=== PATIENT | female | born 1980 | race Two or more races ===

== ENCOUNTER 2019-03-15 19:40 | Emergency (ER) | payer SELFPAY ==
--- NOTE | 2019-03-15 22:33 | ER Document Report ---
ED Medical Screen (RME) - General Chief Complaint: Urinary Problem Stated Complaint: URINATING PAIN Time Seen by Provider: 03/15/19 22:27 Mode of Arrival: Ambulatory Information source: Patient Notes: Patient presents complaining of dysuria symptoms for the past 5 days. Patient denies any fever or flank pain. I have greeted and performed a rapid initial assessment of this patient. A comprehensive ED assessment and evaluation of the patient, analysis of test results and completion of the medical decision making process will be conducted by additional ED providers. TRAVEL OUTSIDE OF THE [place] IN LAST 30 DAYS: No Physical Exam - Vital signs Vitals: Temp Pulse Resp BP Pulse Ox 98.7 F 77 18 107/60 97 03/15/19 19:51 03/15/19 19:51 03/15/19 19:51 03/15/19 19:51 03/15/19 19:51 - General General appearance: Appears well, Alert In distress: None Course - Vital Signs Vital signs: Temp Pulse Resp BP Pulse Ox 98.7 F 77 18 107/60 97 03/15/19 19:51 03/15/19 19:51 03/15/19 19:51 03/15/19 19:51 03/15/19 19:51
[2019-03-16 00:05] LABS: APPEARANCE,URINE SLIGHTLY-CLOUDY; BILIRUBIN,URINE NEGATIVE (NEGATIVE); COLOR,URINE YELLOW; GLUCOSE, URINE NEGATIVE (NEGATIVE); KETONES,URINE NEGATIVE (NEGATIVE); LEUKOCYTE ESTERASE,URINE MODERATE (NEGATIVE); NITRITE,URINE POSITIVE (NEGATIVE); PROTEIN,URINE 30 mg/dL (NEGATIVE); URINE SPECIFIC GRAVITY 1.018; UROBILINOGEN,URINE NEGATIVE mg/dL (<2.0)
[2019-03-16] MEDS ORDERED: CEPHALEXIN 500 MG CAPSULE PO ONE (00:57)
[2019-03-16] MEDS ORDERED: PHENAZOPYRIDINE HCL 200 MG TABLET PO ONE (00:57)
--- NOTE | 2019-03-16 01:00 | ER Document Report ---
HPI - HPI Patient complains to provider of: dysuria Time Seen by Provider: 03/15/19 22:27 Onset: Other - 5 days Onset/Duration: Persistent Quality of pain: Burning Pain Level: 3 Context: Patient presents complaining of dysuria for the past 5 days. Patient denies any flank pain or fever. Patient denies any concern about . Associated Symptoms: Other - Dysuria. denies: Fever Exacerbated by: Denies Relieved by: Denies Similar symptoms previously: Yes Recently seen / treated by doctor: No - ROS ROS below otherwise negative: Yes Systems Reviewed and Negative: Yes All other systems reviewed and negative - CONSTITUTIONAL Constitutional: DENIES: Fever, Chills - RESPIRATORY Respiratory: DENIES: Coughing - GASTROINTESTINAL Gastrointestinal: DENIES: Abdominal Pain, Nausea, Patient vomiting - URINARY Urinary: REPORTS: Dysuria - REPRODUCTIVE Reproductive: DENIES: : - MUSCULOSKELETAL Musculoskeletal: DENIES: Back Pain - DERM Skin Color: Normal Skin Problems: None Past Medical History - General Information source: Patient - Social History Smoking Status: Current Some Day Smoker Frequency of alcohol use: None Drug Abuse: None Occupation: None Lives with: Family Family History: Reviewed & Not Pertinent - Medical History Medical History: Negative Surgical Hx: Negative Vertical Provider Document - CONSTITUTIONAL Agree With Documented VS: Yes Exam Limitations: No Limitations General Appearance: WD/WN, No Apparent Distress - INFECTION CONTROL TRAVEL OUTSIDE OF THE [place] IN LAST 30 DAYS: No - HEENT HEENT: Atraumatic, Normocephalic - NECK Neck: Normal Inspection - RESPIRATORY Respiratory: No Respiratory Distress - GI/ABDOMEN Gastrointestinal: Abdomen Soft, Abdomen Non-Tender - BACK Back: Normal Inspection. negative: CVA Tenderness-Right, CVA Tenderness-Left - MUSCULOSKELETAL/EXTREMETIES Musculoskeletal/Extremeties: MAEW - NEURO Level of Consciousness: Awake, Alert, Appropriate Motor/Sensory: No Motor Deficit - DERM Integumentary: Warm, Dry, No Rash Course - Vital Signs Vital signs: Temp Pulse Resp BP Pulse Ox 98.7 F 77 18 107/60 97 03/15/19 19:51 03/15/19 19:51 03/15/19 19:51 03/15/19 19:51 03/15/19 19:51 - Laboratory Laboratory results interpreted by me: 03/15/19 23:34 Urine Protein 30 H Urine Blood SMALL H Urine Nitrite POSITIVE H Ur Leukocyte Esterase MODERATE H 03/16/19 00:58 Labs- Entire Visit 03/15/19 23:34 Urine Color YELLOW Urine Appearance SLIGHTLY-CLOUDY Urine pH 6.0 Ur Specific [place] 1.018 Urine Protein 30 H Urine Glucose (UA) NEGATIVE Urine Ketones NEGATIVE Urine Blood SMALL H Urine Nitrite POSITIVE H Urine Bilirubin NEGATIVE Urine Urobilinogen NEGATIVE Ur Leukocyte Esterase MODERATE H Urine WBC (Auto) 156 Urine RBC (Auto) 9 Squamous Epi Cells Auto <1 Urine Mucus (Auto) OCC Urine Ascorbic Acid NEGATIVE Urine HCG, Qual NEGATIVE Discharge - Discharge Clinical Impression: UTI (urinary tract infection) Qualifiers: Urinary tract infection type: site unspecified Hematuria presence: with hematuria Qualified Code(s): N39.0 - Urinary tract infection, site not specified Condition: Stable Disposition: HOME, SELF-CARE Instructions: Cephalexin ([facility]), Urinary Anesthetic Agent ([facility]), Urinary Tract Infection ([facility]) Additional Instructions: Return immediately for any new or worsening symptoms Followup with your primary care provider, call tomorrow to make a followup appointment Prescriptions: Cephalexin Monohydrate [Keflex 500 mg Capsule] 500 mg PO Q6H 5 Days capsule Phenazopyridine HCl [Pyridium 200 mg Tablet] 200 mg PO TID #15 tablet Referrals: [facility] [Provider Group] - Follow up as needed Print Language: Luxembourgish
[2019-03-16] MEDS ORDERED: PHENAZOPYRIDINE HCL 100 MG TABLET PO ONE (01:42)
[2019-03-16] MEDS ORDERED: PHENAZOPYRIDINE HCL 200 MG TABLET ONE (01:50)
[2019-03-16 02:11] VITALS: BP 108/70
== END 2019-03-16 02:09 | disposition home or self-care (01) ==
LOC: ER 19:40
DX: N39.0 Urinary tract infection, site not specified (principal); F17.200 Nicotine dependence, unspecified, uncomplicated
CPT/HCPCS: 87086; 81025; 87088; 81001; 87186; J3490; 99283

== ENCOUNTER 2019-09-16 12:10 | Emergency (ER) | payer SELFPAY ==
--- NOTE | 2019-09-16 13:40 | ER Document Report ---
ED Medical Screen (RME) - General Chief Complaint: Back Pain Stated Complaint: BACK PAIN Time Seen by Provider: 09/16/19 13:32 Mode of Arrival: Ambulatory Information source: Patient Notes: Patient is a Georgian-speaking 38-year-old female presenting to the emergency department with multiple complaints. Patient reports low back pain, lower abdominal pain, nausea and fever. Patient reports that she had some type of gynecological cancer back in 2018 with subsequent radiation and chemotherapy in 2019. Patient reports the symptoms started a few days ago. She denies any dysuria or urinary problems. Patient was interviewed via an medical assistant per diem. Tenderness to palpation to the low abdomen. I have greeted and performed a rapid initial assessment of this patient. A comprehensive ED assessment and evaluation of the patient, analysis of test results and completion of the medical decision making process will be conducted by additional ED providers. I have specifically instructed the patient or family members with the patient to immediately return to any nursing staff should anything change in the patient's condition or with their chief complaint. TRAVEL OUTSIDE OF THE [place] IN LAST 30 DAYS: No - Related Data Allergies/Adverse Reactions: No Known Allergies Allergy (Verified 09/16/19 13:32) Past Medical History - Social History Frequency of alcohol use: None Drug Abuse: None Renal/ Medical History: Denies: Hx Peritoneal Dialysis Physical Exam - Vital signs Vitals: Temp Pulse Resp BP Pulse Ox 98.5 F 79 16 101/59 L 97 09/16/19 12:38 09/16/19 12:38 09/16/19 12:38 09/16/19 12:38 09/16/19 12:38 Course - Vital Signs Vital signs: Temp Pulse Resp BP Pulse Ox 98.5 F 79 16 101/59 L 97 09/16/19 12:38 09/16/19 12:38 09/16/19 12:38 09/16/19 12:38 09/16/19 12:38
[2019-09-16 14:22] LABS: ABSOLUTE LYMPHOCYTES (AUTO) 1.2 10^3/uL (0.5-4.7); ABSOLUTE MONOCYTES (AUTO) 0.5 10^3/uL (0.1-1.4); ABSOLUTE NEUT (AUTO) 2.1 10^3/uL (1.7-8.2); BASOPHILS % (AUTO) 0.5 % (0-2); EOSINOPHILS % (AUTO) 0.8 % (0-6); HEMATOCRIT 36.5 % (36.0-47.0); HEMOGLOBIN 12.6 g/dL (12.0-15.5); LYMPHOCYTES % (AUTO) 31.4 % (13-45); MEAN CORPUSCULAR HEMOGLOBIN 30.7 pg (27.0-33.4); MEAN CORPUSCULAR HGB CONC 34.6 g/dL (32.0-36.0); MEAN CORPUSCULAR VOLUME 89 fl (80-97); MONOCYTES % (AUTO) 12.7 % (3-13); PLATELET COUNT 251 10^3/uL (150-450); RED BLOOD COUNT 4.12 10^6/uL (3.72-5.28); RED CELL DISTRIBUTION WIDTH 13.2 % (11.5-14.0); SEGMENTED NEUTROPHILS % (AUTO) 54.6 % (42-78); TOTAL CELLS COUNTED % (AUTO) 100 %; WHITE BLOOD COUNT 3.9 10^3/uL (4.0-10.5)
[2019-09-16 14:27] LABS: APPEARANCE,URINE SLIGHTLY-CLOUDY; BILIRUBIN,URINE NEGATIVE (NEGATIVE); COLOR,URINE YELLOW; GLUCOSE, URINE NEGATIVE (NEGATIVE); KETONES,URINE NEGATIVE (NEGATIVE); LEUKOCYTE ESTERASE,URINE SMALL (NEGATIVE); NITRITE,URINE NEGATIVE (NEGATIVE); PROTEIN,URINE NEGATIVE (NEGATIVE); UROBILINOGEN,URINE NEGATIVE mg/dL (<2.0)
[2019-09-16 14:52] LABS: ALBUMIN 4.3 g/dL (3.5-5.0); ALKALINE PHOSPHATASE 141 U/L (38-126); ANION GAP 11 (5-19); ASPARTATE AMINO TRANSFERASE 115 U/L (14-36); BILIRUBIN,DIRECT 0.3 mg/dL (0.0-0.4); BILIRUBIN,TOTAL 0.4 mg/dL (0.2-1.3); BLOOD UREA NITROGEN 14 mg/dL (7-20); CALCIUM 9.6 mg/dL (8.4-10.2); CARBON DIOXIDE 27 mmol/L (22-30); CHLORIDE 101 mmol/L (98-107); GLUCOSE 94 mg/dL (75-110); POTASSIUM 4.4 mmol/L (3.6-5.0); TOTAL PROTEIN 7.4 g/dL (6.3-8.2)
[2019-09-16] MEDS ORDERED: CIPROFLOXACIN HCL 500 MG TABLET PO ONE (17:36)
[2019-09-16] MEDS ORDERED: NAPROXEN 250 MG TABLET PO ONE (17:36)
[2019-09-16] MEDS ORDERED: KETOROLAC TROMETHAMINE 10 MG TABLET PO ONE (17:39)
--- NOTE | 2019-09-16 17:42 | ER Document Report ---
ED General - General Chief Complaint: Back Pain Stated Complaint: BACK PAIN Time Seen by Provider: 09/16/19 13:32 Primary Care Provider: FARHANA CONNELL MD [COMMUNITY BASED STAFF] - Follow up as needed KAYLIN SANCEHZ MD [HONORARY] - Follow up as needed Mode of Arrival: Ambulatory Information source: Patient TRAVEL OUTSIDE OF THE [place] IN LAST 30 DAYS: No - HPI Onset: Other - over the last 3 days Onset/Duration: Gradual Quality of pain: Sharp, Throbbing Severity: Moderate Associated symptoms: Other - radiation of pain down left buttock, mild lower abdominal pains/cramps Exacerbated by: Standing, Movement, Walking, Other - twisting, bending over Relieved by: Remaining still Similar symptoms previously: Yes - when she had Lumbago in the past Recently seen / treated by doctor: No Notes: 38 year old female with a history of Cervical Cancer s/p Chemotherapy, Radiation, and Brachytherapy (last treatment was in 2018) here for 3 days of low back which radiates down her left buttock and 1-2 days of chills and subjective fevers. The patient denies dysuria, urinary urgency, urinary frequency but she does have some mild bilateral lower abdominal crampy pains which she attributes to being her cycle. The patient denies vaginal bleeding and vaginal discharge. She was told she should not expect to bleed after her treatments for Cervical Cancer. The patient denies recent heavy lifting or recent back trauma. - Related Data Allergies/Adverse Reactions: No Known Allergies Allergy (Verified 09/16/19 13:32) Past Medical History - General Information source: Patient - Social History Smoking Status: Current Some Day Smoker Frequency of alcohol use: None Drug Abuse: None Lives with: Family Family History: Reviewed & Not Pertinent Patient has suicidal ideation: No Patient has homicidal ideation: No - Past Medical History Cardiac Medical History: Reports: None Pulmonary Medical History: Reports: None EENT Medical History: Reports: None Neurological Medical History: Reports: None Endocrine Medical History: Reports: None Renal/ Medical History: Reports: None. Denies: Hx Peritoneal Dialysis Malignancy Medical History: Reports: Hx Cervical Cancer GI Medical History: Reports: None Musculoskeletal Medical History: Reports None Skin Medical History: Reports None Psychiatric Medical History: Reports: None Review of Systems - Review of Systems Constitutional: Chills, Fever - subjective EENT: No symptoms reported Cardiovascular: No symptoms reported Respiratory: No symptoms reported Gastrointestinal: Abdominal pain - lower bilateral which is mild and comes and goes Genitourinary: Flank pain - bilateral Female Genitourinary: No symptoms reported Musculoskeletal: Back pain - which radiates down left buttock Skin: No symptoms reported Hematologic/Lymphatic: No symptoms reported Neurological/Psychological: No symptoms reported -: Yes All other systems reviewed and negative Physical Exam - Vital signs Vitals: Temp Pulse Resp BP Pulse Ox 98.5 F 79 16 101/59 L 97 09/16/19 12:38 09/16/19 12:38 09/16/19 12:38 09/16/19 12:38 09/16/19 12:38 - Notes Notes: GENERAL: Well-appearing, well-nourished and in no acute distress. HEAD: Atraumatic, normocephalic. EYES: Pupils equal round and reactive to light, extraocular movements intact, sclera anicteric, conjunctiva are normal. ENT: Nares patent, oropharynx clear without exudates. Moist mucous membranes. NECK: Normal range of motion, supple without lymphadenopathy or JVD. LUNGS: Breath sounds clear to auscultation bilaterally and equal. No wheezes rales or rhonchi. HEART: Regular rate and rhythm without murmurs, rubs or gallops. ABDOMEN: Soft, nontender, normoactive bowel sounds. No guarding, no rebound. No masses appreciated. BACK: No midline spinal tenderness on palpation. mild bilateral flank tenderness on palpation. Back pain made worse when she bends at waist or twists at hips. EXTREMITIES: Normal range of motion, no pitting or edema. No clubbing or cyanosis. NEUROLOGICAL: Cranial nerves II through XII grossly intact. Normal speech, normal gait. PSYCH: Normal mood, normal affect. SKIN: Warm, Dry, normal turgor, no rashes or lesions noted. Course - Re-evaluation Re-evalutation: 09/16/19 17:57 The patient is here for 3 days of low back pain and bilateral flank pain which radiates down her left buttock and was associated with subjective fever and chills. Patient's UA looks possibly infectious. Will culture but empirically treat for Pyelonephritis with 7 days of Cipro. Patient given oral Toradol and a script for Naprosyn for the pain in her back. Patient told to follow up with her PCP if symptoms persist despite treatment. - Vital Signs Vital signs: Temp Pulse Resp BP Pulse Ox 98.2 F 72 16 101/64 97 09/16/19 17:45 09/16/19 17:45 09/16/19 17:45 09/16/19 17:45 09/16/19 17:45 - Laboratory Result Diagrams: 09/16/19 14:00 09/16/19 14:00 Laboratory results interpreted by me: 09/16/19 09/16/19 09/16/19 14:00 14:00 14:00 WBC 3.9 L Creatinine 0.48 L AST 115 H Alkaline Phosphatase 141 H Urine Blood SMALL H Ur Leukocyte Esterase SMALL H Discharge - Discharge Clinical Impression: Pyelonephritis Lumbago Qualifiers: Chronicity: acute Back pain laterality: bilateral Sciatica presence: with sciatica Sciatica laterality: sciatica of left side Qualified Code(s): M54.42 - Lumbago with sciatica, left side Condition: Stable Disposition: HOME, SELF-CARE Instructions: Low Back Pain ([facility]), Pyelonephritis ([facility]) Additional Instructions: Take Ciprofloxacin (antibiotic) as prescribed. Use the prescribed Naproxen as needed along with over the counter Tylenol and heating pads for back pain. Follow up with your primary care doctor or one of the primary care doctors listed if symptoms persist. Prescriptions: Ciprofloxacin HCl [Cipro 500 mg Tablet] 500 mg PO BID #14 tablet Naproxen 500 mg PO BID PRN #14 tablet PRN Reason: Referrals: KAYLIN SANCHEZ MD [HONORARY] - Follow up as needed FARHANA CONNELL MD [COMMUNITY BASED STAFF] - Follow up as needed
[2019-09-16 17:46] VITALS: BP 101/64
== END 2019-09-16 18:15 | disposition home or self-care (01) ==
LOC: ER 12:10
DX: N12 Tubulo-interstitial nephritis, not specified as acute or chronic (principal); M54.42 Lumbago with sciatica, left side; F17.200 Nicotine dependence, unspecified, uncomplicated; Z85.41 Personal history of malignant neoplasm of cervix uteri
CPT/HCPCS: 36415; 83690; 85025; 81025; 80053; 81001; J3490

== ENCOUNTER 2020-03-03 16:11 | Emergency (ER) | payer SELFPAY ==
--- NOTE | 2020-03-03 19:09 | ER Document Report ---
ED Medical Screen (RME) - General Chief Complaint: Headache Stated Complaint: HEADACHE/CHILLS/URINARY PROBLEMS Time Seen by Provider: 03/03/20 19:02 TRAVEL OUTSIDE OF THE [place] IN LAST 30 DAYS: No - HPI Notes: 03/03/20 19:03 39 yr old female history of cervical cancer in 2018 for cancer presents to ER for complaints of lower back pain that radiates to her pelvic area x 3 days. Patient only speak Bengali Martti had to be used to communicate. Patient reports she has lower back pain that radiates to her pelvic area. She states that she did have a UTI back in September with lower back pain, they just do urinalysis. Patient denies any vaginal bleeding or vaginal discharge. States her menstrual cycles are regular, she has not had a menstrual cycle and 5 months, she does not believe that she is . G3, P3. I have greeted and performed a rapid initial assessment of this patient. A comprehensive ED assessment and evaluation of the patient, analysis of test results and completion of the medical decision making process will be conducted by additional ED providers. PHYSICAL EXAMINATION: NECK: Normal range of motion CV: s1, s2 regular LUNGS: No respiratory distress abd: lower pelvic pain - Related Data Allergies/Adverse Reactions: No Known Allergies Allergy (Verified 09/16/19 13:32) Past Medical History Renal/ Medical History: Denies: Hx Peritoneal Dialysis Malignancy Medical History: Reports: Hx Cervical Cancer
[2020-03-03 20:20] LABS: ABSOLUTE LYMPHOCYTES (AUTO) 0.7 10^3/uL (0.5-4.7); ABSOLUTE MONOCYTES (AUTO) 0.5 10^3/uL (0.1-1.4); ABSOLUTE NEUT (AUTO) 8.6 10^3/uL (1.7-8.2); BASOPHILS % (AUTO) 0.3 % (0-2); HEMATOCRIT 37.7 % (36.0-47.0); HEMOGLOBIN 13.1 g/dL (12.0-15.5); LYMPHOCYTES % (AUTO) 7.5 % (13-45); MEAN CORPUSCULAR HEMOGLOBIN 30.2 pg (27.0-33.4); MEAN CORPUSCULAR HGB CONC 34.7 g/dL (32.0-36.0); MEAN CORPUSCULAR VOLUME 87 fl (80-97); MONOCYTES % (AUTO) 5.3 % (3-13); PLATELET COUNT 256 10^3/uL (150-450); RED BLOOD COUNT 4.33 10^6/uL (3.72-5.28); RED CELL DISTRIBUTION WIDTH 13.1 % (11.5-14.0); SEGMENTED NEUTROPHILS % (AUTO) 86.9 % (42-78); TOTAL CELLS COUNTED % (AUTO) 100 %; WHITE BLOOD COUNT 9.9 10^3/uL (4.0-10.5)
[2020-03-03 20:25] LABS: APPEARANCE,URINE CLEAR; BILIRUBIN,URINE NEGATIVE (NEGATIVE); COLOR,URINE YELLOW; GLUCOSE, URINE NEGATIVE (NEGATIVE); KETONES,URINE NEGATIVE (NEGATIVE); LEUKOCYTE ESTERASE,URINE NEGATIVE (NEGATIVE); NITRITE,URINE NEGATIVE (NEGATIVE); PROTEIN,URINE NEGATIVE (NEGATIVE); UROBILINOGEN,URINE NEGATIVE mg/dL (<2.0)
[2020-03-03 20:44] LABS: ALBUMIN 4.6 g/dL (3.5-5.0); ALKALINE PHOSPHATASE 99 U/L (38-126); ANION GAP 12 (5-19); ASPARTATE AMINO TRANSFERASE 63 U/L (14-36); BILIRUBIN,TOTAL 0.5 mg/dL (0.2-1.3); BLOOD UREA NITROGEN 11 mg/dL (7-20); CALCIUM 9.5 mg/dL (8.4-10.2); CARBON DIOXIDE 25 mmol/L (22-30); CHLORIDE 99 mmol/L (98-107); GLUCOSE 117 mg/dL (75-110); POTASSIUM 4.2 mmol/L (3.6-5.0); TOTAL PROTEIN 7.1 g/dL (6.3-8.2)
--- NOTE | 2020-03-03 21:08 | RADIOLOGY REPORT (SQ) ---
US PELVIS HISTORY: Pelvic pain. History of cervical cancer. COMPARISON: None. TECHNIQUE: Grayscale, color Doppler, and spectral Doppler ultrasound images of the pelvis were obtained. FINDINGS: The uterus is anteverted and measures 5.6 x 4.3 x 3.0 mm. The endometrium is 4 mm in thickness. The cervix is 1.8 cm in length. There is a possible 1.5 x 1.4 cm fibroid in the anterior uterine segment. The right ovary is not visualized due to overlying bowel gas. The left ovary measures 2.2 x 1.2 cm. There is mild pelvic free fluid. IMPRESSION: 1. No acute pelvic findings. 2. Possible 1.5 cm fibroid in the anterior uterus. 3. Normal left ovary. Right ovary not visualized.
--- NOTE | 2020-03-03 22:18 | RADIOLOGY REPORT (SQ) ---
EXAM DESCRIPTION: XR CHEST 1 VIEW COMPLETED DATE/TME: 03/03/2020 21:29 CLINICAL HISTORY: 39 years, Female, fever COMPARISON: None. NUMBER OF VIEWS: One TECHNIQUE: Single frontal view of the chest was obtained portably LIMITATIONS: None. FINDINGS: Cardiac and mediastinal contours are normal in appearance. Lungs are clear. No pleural effusion or pneumothorax. IMPRESSION: No acute disease. copyright 2010 [employer]- All Rights Reserved
[2020-03-03] MEDS ORDERED: IBUPROFEN 600 MG TABLET PO ONE (22:41)
--- NOTE | 2020-03-04 00:01 | ER Document Report ---
ED General - General Chief Complaint: Headache Stated Complaint: HEADACHE/CHILLS/URINARY PROBLEMS Time Seen by Provider: 03/03/20 19:02 TRAVEL OUTSIDE OF THE [place] IN LAST 30 DAYS: No - HPI Notes: 39-year-old female history of cervical cancer status post resection without hysterectomy, chemo, RT in remission approximately 1 year presents with approximately 2 days gradual onset moderate left flank pain and pelvic pain bilaterally associated with mild diffuse headache and fever. Patient has had similar symptoms before when she has had a UTI but denies dysuria urgency or frequency currently. Patient denies any neck pain or stiffness, rash, abdominal pain elsewhere, vaginal discharge or bleeding, immune compromise, diabetes, prior abdominal surgeries, sick contacts, weakness or numbness, change in vision speech or gait, trauma, vomiting - Related Data Allergies/Adverse Reactions: No Known Allergies Allergy (Verified 09/16/19 13:32) Past Medical History - General Information source: Patient - Social History Smoking Status: Unknown if Ever Smoked Chew tobacco use (# tins/day): No Frequency of alcohol use: None Drug Abuse: None Family History: Reviewed & Not Pertinent Renal/ Medical History: Denies: Hx Peritoneal Dialysis Malignancy Medical History: Reports: Hx Cervical Cancer Review of Systems - Review of Systems Notes: REVIEW OF SYSTEMS: CONSTITUTIONAL : + fever, chills, or sweats. EENT: Denies recent cold/sinus symptoms, denies throat pain CARDIOVASCULAR: Denies chest pain, ENEDINA RESPIRATORY: Denies cough, denies shortness of breath. GASTROINTESTINAL: Denies abdominal pain, nausea/vomiting. GENITOURINARY: Denies difficulty urinating, painful urination. FEMALE GENITOURINARY: Denies abnormal vaginal bleeding, vaginal discharge. MUSCULOSKELETAL: Denies neck pain, back pain. SKIN: Denies rash or skin lesions. HEMATOLOGIC : Denies easy bruising or bleeding. LYMPHATIC: Denies swollen, enlarged glands. NEUROLOGICAL: + headache, - change in gait. PSYCHIATRIC: Denies anxiety or stress or depression. Physical Exam - Vital signs Vitals: Temp Pulse Resp BP Pulse Ox 100.5 F H 98 20 110/64 95 03/03/20 20:40 03/03/20 20:40 03/03/20 20:40 03/03/20 20:40 03/03/20 20:40 - Notes Notes: PHYSICAL EXAMINATION: GENERAL: Well-appearing, well-nourished and in no acute distress. HEAD: Atraumatic, normocephalic. EYES: Pupils equal round and appropriate constriction, sclera anicteric, conjunctiva are normal. ENT: nares patent, moist mucous membranes. NECK: Normal range of motion, supple without lymphadenopathy LUNGS: Breath sounds clear to auscultation bilaterally and equal. No wheezes rales or rhonchi. HEART: Regular rate and rhythm without murmurs ABDOMEN: Soft, nontender, no guarding, no masses, +left CVAT, mild discomfort on deep palpation of left and right pelvis EXTREMITIES: Normal range of motion, no pitting or edema. No cyanosis. NEUROLOGICAL: Awake, alert, conversing appropriately, moves all extremities spontaneously. PSYCH: Normal mood, normal affect. SKIN: Warm, Dry, normal turgor, no rashes or lesions noted. Course - Re-evaluation Re-evalutation: 03/04/20 00:06 Patient sexually active with only for a long time, denies any signs STD risk factors or history. Pain gradual in onset and has been present for at least 2 days, not severe, unlikely torsion. Rule out infected renal stone, COVID, UTI/pyelo. Patient otherwise very well-appearing, has mild diffuse headache that comes when she gets a fever consistent with other headaches. No neuro symptoms, no signs of meningitis, normal neuro exam. Transvaginal sono ordered in triage so some mild pelvic fluid and cannot visualize right ovary, will perform pelvic exam and obtain CT abdomen pelvis. - Vital Signs Vital signs: Temp Pulse Resp BP Pulse Ox 98.2 F 81 16 106/60 98 03/04/20 02:16 03/04/20 02:16 03/04/20 02:16 03/04/20 02:16 03/04/20 02:16 - Laboratory Result Diagrams: 03/03/20 19:54 03/03/20 19:54 Laboratory results interpreted by me: 03/03/20 03/03/20 03/03/20 19:40 19:54 19:54 Lymph % (Auto) 7.5 L Absolute Neuts (auto) 8.6 H Seg Neutrophils % 86.9 H Sodium 135.6 L Glucose 117 H AST 63 H ALT 65 H Urine Blood MODERATE H Discharge - Discharge Clinical Impression: Pelvic pain Fever Qualifiers: Fever type: unspecified Qualified Code(s): R50.9 - Fever, unspecified Disposition: HOME, SELF-CARE Additional Instructions: Fever Fever is the body's reaction to infection. Fever can also occur with illnesses that create fever-producing substances in the body. By itself, fever is not harmful. It helps the body fight invading germs. We are more concerned with: (1) What's causing the fever? (2) How can we keep you more comfortable until the fever goes away? Early in an illness, symptoms are often so vague that a diagnosis can't be made. If the doctor hasn't identified a clear cause for your fever, you will probably develop new symptoms within the next two days. Contact the doctor if you develop severe worsening headache, rash, chest pain, cough with yellow or green sputum, difficulty breathing, abdominal pain, or other new symptoms. There is no reason to treat a fever if you're comfortable. If the fever is causing aches, headache, and fatigue, you can treat it with ibuprofen (Advil, Nuprin, etc) or acetaminophen (Tylenol). Follow the directions on the bottle. Get plenty of liquids (three quarts per day). Rest. Physical work or sports will raise the temperature higher and make you feel much worse. Dress lightly. If you're chilling, this means the temperature is trying to go higher. Take ibuprofen or acetaminophen. When you feel sweaty and "feverish" the temperature is coming down. If the fever doesn't go away within two days or if you become more ill, call the doctor or return at once for re-examination. Abdominal Pain There are many causes of abdominal pain. Pain can mean a serious problem requiring surgery (such as appendicitis). It can also be an innocent problem that goes away on its own (such as a viral infection). Often, time must pass to determine the cause of pain. The physician does not feel that hospitalization is necessary, at present. Things may change within the next 24 hours. Call the doctor or come back for re- examination if any problems occur, such as: (1) Pain that becomes more severe, steady, or becomes concentrated in one specific area. Also, pain that is more severe with movement or coughing. (2) Vomiting that persists or becomes more frequent. (3) Blood in the vomitus, urine, or bowel movements. Blood in the stool may have a tarry or black appearance. (4) Shaking chills or fever greater than 100 degrees F. (5) The abdomen becomes more distended or swollen. (6) Bowel movements cease. (7) Failure to improve as expected. Pelvic Pain There are many causes of pain in the pelvic area. The cause could be the tubes, ovaries, uterus, intestines, appendix, pelvic muscles and connective tissue, or the urinary tract. The cause of your pelvic pain is not clear. However, it seems safe to treat you outside the hospital. If the pain sounds like a temporary problem, we sometimes wait to see if it goes away. Other patients may need additional tests, such as pelvic ultrasound or cultures. Conditions may change. Call us or come back for reexamination if any problems occur, such as: (1) Pain that becomes more severe, steady, or becomes concentrated in one specific area. Also, pain that is more severe with movement or coughing. (2) Vomiting that persists or becomes more frequent. (3) Blood in the vomitus, urine, or bowel movements. Blood in the stool may have a tarry or black appearance. (4) Shaking chills or fever greater than 100 degrees. (5) The abdomen becomes more distended or swollen. (6) Bowel movements cease. (7) Heavy vaginal bleeding. Patient was provided with discharge information including: As a person under investigation for Covid 19, the [place] department of Health and Human Services, division of public health advises you to adhere to the following guidance until your test results are reported to you. If your test result is positive, you will receive additional information from your provider and your local health department at that time. Remain at home until you are cleared by the health provider or public health authorities. Keep a log of visitors to your home, notify any visitors to your home of your isolation status. If you plan to move to a new address or leave the county, notify the local health department in your County. Call your doctor or seek care if you have an urgent medical need. Before seeking medical care, call ahead to get instructions from the provider before arriving at the medical office clinic or hospital. Notify them that you are being tested for the virus that causes Covid 19 so that arrangements can be made, as necessary, to prevent transmission to others in the healthcare setting. Next, notify the local health department in your county. If a medical emergency arises and you need to call 911, inform the first responders that you are being tested for the virus that causes Covid 19. Next, notify the local health department in your county. Es posible que las sintomas que tiene hoy van a empeorar. Si tiene peor dolor, sigue teniendo fiebre, o cualquiera otra sintoma peor o asustante regrese a la brittany de emergencia inmediatamente. Chloé a beaver doctor primario y ginecologo entre imelda semana. Usted tuvo lev en la orina y pruebas de beaver higado un poco elevadas. Discute esto con beaver doctor primario y lleve irasema resultados.
--- NOTE | 2020-03-04 01:37 | RADIOLOGY REPORT (SQ) ---
CT abdomen and pelvis with contrast on 03/04/2020 at 1:04 AM CLINICAL INDICATION: Right lower quadrant pain, fever, hematuria TECHNIQUE: Multiple axial images are obtained throughout the abdomen and pelvis following the administration of IV contrast, 72.5 mL of Omnipaque 350contrast was administered intravenously without complication. This exam was performed according to our departmental dose-optimization program, which includes automated exposure control, adjustment of the mA and/or kV according to patient size and/or use of iterative reconstruction technique. Total DLP is 669.38 mGy*cm. COMPARISON: None FINDINGS: Abdomen: There is minimal bibasilar atelectasis. There are no renal or ureteral stones and no hydronephrosis. The solid abdominal organs are otherwise unremarkable. There is no abdominal adenopathy. There is no free fluid or free air within the abdomen. The abdominal portion of the GI tract is unremarkable. Pelvis: There is an appendicolith in the base of the cecum extending into the proximal appendix but the appendix otherwise appears unremarkable with no evidence of appendicitis. The appendix only measures 4-5 mm in diameter and there is no adjacent fat stranding. There is bladder wall thickening with surrounding fat stranding around the bladder suggesting cystitis, please correlate with urinalysis. Free fluid in the pelvis is likely physiologic. Pelvic organs appear unremarkable by CT. There is no pelvic adenopathy. The pelvic portion of the GI tract is otherwise unremarkable. No bony abnormality is noted. IMPRESSION: 1. Findings suggesting cystitis, please correlate with urinalysis. 2. No other acute abnormality.
[2020-03-04 03:28] LABS: RBCS (WET MOUNT) FEW RBCS SEEN; T.VAGINALIS (WET MOUNT) NO TRICHOMONAS SEEN; WBCS (WET MOUNT) 4+ WBCS SEEN; YEAST (WET MOUNT) NO YEAST SEEN
[2020-03-04 04:12] VITALS: BP 106/62
[2020-03-04 04:56] LABS: CHLAM PCR NOT DETECTED (NOT DETECT)
== END 2020-03-04 04:13 | disposition home or self-care (01) ==
LOC: ER 16:11
DX: R10.2 Pelvic and perineal pain (principal); R50.9 Fever, unspecified; R51 Headache; Z20.828 Contact with and (suspected) exposure to other viral communicable diseases; Z85.41 Personal history of malignant neoplasm of cervix uteri
CPT/HCPCS: 99284; 36415; 87070; 87205; 87210; 83690; 85025; 87635; 81025; 80053; 81001; 87491; 87591; 71045; 76830; 74177; C9803; 87077

== ENCOUNTER 2020-06-11 16:29 | Emergency (ER) | payer SELFPAY ==
--- NOTE | 2020-06-11 17:23 | ER Document Report ---
ED Medical Screen (RME) - General Chief Complaint: Abdominal Pain Stated Complaint: ABDOMINAL PAIN/BACK PAIN Time Seen by Provider: 06/11/20 17:20 Mode of Arrival: Ambulatory Information source: Patient Notes: 39-year-old female coming in today with several weeks of upper abdominal pain. She gets increased pain and fullness after she eats. No history of gallbladder disease. No vomiting. No diarrhea. No constipation. No fevers or chills. No weight loss. History of kidney infections in the past but does not feel the same. Patient obviously concerned because she has a hist ory of uterine cancer in the past. She has always had normal scans and is not currently under treatment for this presently. Physical exam General: Nontoxic Cardiac regular rate and rhythm Pulmonary clear to auscultation, no respiratory distress Abdomen nontender nondistended. Bowel sounds present all 4 quadrants Musculoskeletal moves all extremities well Neuro no focal deficits I have greeted and performed a rapid initial assessment of this patient. A comprehensive ED assessment and evaluation of the patient, analysis of test results and completion of the medical decision making process will be conducted by additional ED providers. TRAVEL OUTSIDE OF THE [place] IN LAST 30 DAYS: No - Related Data Allergies/Adverse Reactions: No Known Allergies Allergy (Verified 09/16/19 13:32) Past Medical History Renal/ Medical History: Denies: Hx Peritoneal Dialysis Malignancy Medical History: Reports: Hx Cervical Cancer Physical Exam - Vital signs Vitals: Temp Pulse Resp BP Pulse Ox 97.4 F 83 16 106/63 97 06/11/20 16:37 06/11/20 16:37 06/11/20 16:37 06/11/20 16:37 06/11/20 16:37 Course - Vital Signs Vital signs: Temp Pulse Resp BP Pulse Ox 97.4 F 83 16 106/63 97 06/11/20 16:37 06/11/20 16:37 06/11/20 16:37 06/11/20 16:37 06/11/20 16:37
[2020-06-11 19:10] LABS: ABSOLUTE EOSINOPHILS # (AUTO) 0.1 10^3/uL (0.0-0.6); ABSOLUTE LYMPHOCYTES (AUTO) 1.5 10^3/uL (0.5-4.7); ABSOLUTE MONOCYTES (AUTO) 0.4 10^3/uL (0.1-1.4); BASOPHILS % (AUTO) 0.4 % (0-2); EOSINOPHILS % (AUTO) 1.4 % (0-6); HEMATOCRIT 36.5 % (36.0-47.0); HEMOGLOBIN 12.6 g/dL (12.0-15.5); LYMPHOCYTES % (AUTO) 30.3 % (13-45); MEAN CORPUSCULAR HEMOGLOBIN 30.3 pg (27.0-33.4); MEAN CORPUSCULAR HGB CONC 34.6 g/dL (32.0-36.0); MEAN CORPUSCULAR VOLUME 88 fl (80-97); MONOCYTES % (AUTO) 7.8 % (3-13); PLATELET COUNT 277 10^3/uL (150-450); RED BLOOD COUNT 4.17 10^6/uL (3.72-5.28); RED CELL DISTRIBUTION WIDTH 13.3 % (11.5-14.0); SEGMENTED NEUTROPHILS % (AUTO) 60.1 % (42-78); TOTAL CELLS COUNTED % (AUTO) 100 %
[2020-06-11 19:16] LABS: APPEARANCE,URINE CLEAR; BILIRUBIN,URINE NEGATIVE (NEGATIVE); COLOR,URINE YELLOW; GLUCOSE, URINE NEGATIVE (NEGATIVE); KETONES,URINE NEGATIVE (NEGATIVE); PROTEIN,URINE NEGATIVE (NEGATIVE); URINE SPECIFIC GRAVITY 1.028; UROBILINOGEN,URINE NEGATIVE mg/dL (<2.0)
[2020-06-11 19:32] LABS: ALBUMIN 4.2 g/dL (3.5-5.0); ALKALINE PHOSPHATASE 93 U/L (38-126); ANION GAP 11 (5-19); ASPARTATE AMINO TRANSFERASE 32 U/L (14-36); BILIRUBIN,DIRECT 0.1 mg/dL (0.0-0.4); BILIRUBIN,TOTAL 0.3 mg/dL (0.2-1.3); BLOOD UREA NITROGEN 15 mg/dL (7-20); CALCIUM 9.3 mg/dL (8.4-10.2); CARBON DIOXIDE 26 mmol/L (22-30); CHLORIDE 103 mmol/L (98-107); GLUCOSE 126 mg/dL (75-110); POTASSIUM 4.4 mmol/L (3.6-5.0); TOTAL PROTEIN 6.6 g/dL (6.3-8.2)
[2020-06-11] MEDS ORDERED: FAMOTIDINE 20 MG TABLET PO ONE (21:46)
[2020-06-11] MEDS ORDERED: MAG HYDROX/AL HYDROX/SIMETH SUSP 30 ML UDCUP PO ONE (21:46)
[2020-06-11] MEDS ORDERED: DICYCLOMINE HCL 20 MG TABLET PO ONE (21:46)
--- NOTE | 2020-06-11 21:52 | ER Document Report ---
ED General - General Chief Complaint: Abdominal Pain >50 Stated Complaint: ABDOMINAL PAIN/BACK PAIN Time Seen by Provider: 06/11/20 17:20 Mode of Arrival: Ambulatory Notes: 39-year-old female history of , cervical cancer post chemotherapy and radiation in remission with several negative Paps since therapy presents with approximately 5 to 6 days of right flank pain radiating to right lower quadrant and approximately 6 months of generalized abdominal discomfort that is intermittent and aggravated by eating certain foods associated with early satiety and sensation of gaseous abdominal distention. Patient has been going to her appropriate follow-up with her chief petroleum engineer. Patient had a colonoscopy approximately 1 year ago with similar symptoms which resolved but then returned. Patient denies any vomiting, diarrhea, constipation, obstipation, melena, bright red blood per rectum, dizziness, syncope, dysuria, frequency, urgency, hematuria, fever, myalgia, cough, URI symptoms, vaginal bleeding, vaginal discharge, pelvic pain TRAVEL OUTSIDE OF THE [place] IN LAST 30 DAYS: No - Related Data Allergies/Adverse Reactions: No Known Allergies Allergy (Verified 06/11/20 17:22) Past Medical History - General Information source: Patient - Social History Smoking Status: Current Some Day Smoker Frequency of alcohol use: None Drug Abuse: None Family History: Reviewed & Not Pertinent Renal/ Medical History: Denies: Hx Peritoneal Dialysis Malignancy Medical History: Reports: Hx Cervical Cancer Past Surgical History: Reports: Hx Section Review of Systems - Review of Systems Notes: REVIEW OF SYSTEMS: CONSTITUTIONAL : Denies fever, chills, or sweats. EENT: Denies recent cold/sinus symptoms, denies throat pain CARDIOVASCULAR: Denies chest pain, ENEDINA RESPIRATORY: Denies cough, denies shortness of breath. GASTROINTESTINAL: + abdominal pain, -vomiting. GENITOURINARY: Denies difficulty urinating, painful urination. FEMALE GENITOURINARY: Denies abnormal vaginal bleeding, vaginal discharge. MUSCULOSKELETAL: Denies neck pain, injuries SKIN: Denies rash or skin lesions. HEMATOLOGIC : Denies easy bruising or bleeding. LYMPHATIC: Denies swollen, enlarged glands. NEUROLOGICAL: Denies headache, denies change in gait. PSYCHIATRIC: Denies anxiety or stress or depression. Physical Exam - Vital signs Vitals: Temp Pulse Resp BP Pulse Ox 97.4 F 83 16 106/63 97 06/11/20 16:37 06/11/20 16:37 06/11/20 16:37 06/11/20 16:37 06/11/20 16:37 - Notes Notes: PHYSICAL EXAMINATION: GENERAL: Well-appearing, well-nourished and in no acute distress. HEAD: Atraumatic, normocephalic. EYES: Pupils equal round and appropriate constriction, sclera anicteric, conj unctiva are normal. ENT: nares patent, moist mucous membranes. NECK: Normal range of motion, supple without lymphadenopathy LUNGS: Breath sounds clear to auscultation bilaterally and equal. No wheezes rales or rhonchi. HEART: Regular rate and rhythm without murmurs ABDOMEN: Soft, nontender, no guarding, no rebound, no masses, +mild right CVAT EXTREMITIES: Normal range of motion, no pitting or edema. No cyanosis. NEUROLOGICAL: Awake, alert, conversing appropriately, moves all extremities spontaneously. PSYCH: Normal mood, normal affect. SKIN: Warm, Dry, normal turgor, no rashes or lesions noted. Course - Re-evaluation Re-evalutation: 06/11/20 21:53 Very well-appearing patient, normal vital signs, benign abdominal exam. Patient without any STEAMFITTER SUPERVISOR symptoms, understandably concerned that her symptoms could be related to her prior cervical cancer, but this is low likelihood and will need to be followed up with her STEAMFITTER SUPERVISOR in the outpatient setting as there is no sign of any related emergency such as obstruction from a mass or infected mass. Small blood on UA and right flank pain, will rule out nephrolithiasis. Discussed with patient at length importance of following up with glass sander for her c hronic abdominal discomfort after eating which she has demonstrated understanding of. Will obtain CT abdomen pelvis without contrast, give GI cocktail, and reassess. Likely DC with PCP, STEAMFITTER SUPERVISOR, and GI follow-up and return precautions. No indication for pelvic exam at this time as patient has no pel michaela complaints. 06/11/20 23:03 No emergent findings on her work-up, patient with signs of bladder inflammation on her CT which is relatively unchanged since her prior CT months ago and patient will need to have worked up with a urologist as she has hematuria and bladder evaluation possibly secondary to interstitial cystitis but will need additional follow-up. I explained this possibility to patient and gave patient a copy of all of her results. Gave extensive return to ED precautions which she demonstrated understanding of. Communicated with patient in Bel[place]ian which is her preferred language and I am fluent in. - Vital Signs Vital signs: Temp Pulse Resp BP Pulse Ox 97.4 F 83 16 106/63 97 06/11/20 16:37 06/11/20 16:37 06/11/20 16:37 06/11/20 16:37 06/11/20 16:37 - Laboratory Result Diagrams: 06/11/20 17:26 06/11/20 17:26 Laboratory results interpreted by me: 06/11/20 06/11/20 17:26 17:26 Glucose 126 H ALT 40 H Urine Blood SMALL H Discharge - Discharge Clinical Impression: Flank pain, Abnormal liver function test, Elevated serum glucose Abdominal pain Qualifiers: Abdominal location: generalized Qualified Code(s): R10.84 - Generalized abdominal pain Hematuria Qualifiers: Hematuria type: other microscopic Qualified Code(s): R31.29 - Other microscopic hematuria; R31.2 - Other microscopic hematuria Disposition: HOME, SELF-CARE Additional Instructions: Tiene que crystal a un doctor primario y gastroenterologo sobre irasema sintomas entre imelda semana. Tambien tiene inflammacion de la vejiga y un poco de lev en la orina que debe discutir con un urologo. Sigue viendo a beaver ginecologo tambien. Si tiene peor dolor, fiebre, vomito, no puede orinar o evacuar, o cualquiera otra sintoma peor o asustante regrese a la brittany de emergencia inmediatamente. Beaver a zucar estaba un poco alto tambien, discuta esto con beaver doctor primario. Referrals: JUAN A FOSTER MD [ACTIVE STAFF] - Follow up in 1 week MARIE AYERS MD [COAL DUMPING EQUIPMENT OPERATOR] - Follow up in 1 week
--- NOTE | 2020-06-11 22:52 | RADIOLOGY REPORT (SQ) ---
CT abdomen and pelvis without contrast on 06/11/2020 at 10:03 PM CLINICAL INDICATION: Right lower quadrant pain, hematuria TECHNIQUE: Multiple axial images are obtained throughout the abdomen and pelvis without the administration of contrast. This exam was performed according to our departmental dose-optimization program, which includes automated exposure control, adjustment of the mA and/or kV according to patient size and/or use of iterative reconstruction technique. Total DLP is 320.06 mGy*cm. COMPARISON: 03/04/2020 FINDINGS: Abdomen: There is minimal bibasilar atelectasis. There are no renal or ureteral stones and no hydronephrosis. The unenhanced solid abdominal organs are unremarkable. There is no abdominal adenopathy. There is no free fluid or free air within the abdomen. The abdominal portion of the GI tract is unremarkable. Pelvis: Small amount of free fluid in the pelvis is likely physiologic. Pelvic organs appear unremarkable by CT. There is no pelvic adenopathy. Pelvic portion of the GI tract including the appendix is unremarkable. There is some mild fat stranding around the bladder that may be related to cystitis, recommend correlation with urinalysis. No bony abnormality is noted. IMPRESSION: 1. Very mild fat stranding around the bladder that may be related to cystitis, recommend correlation with urinalysis. 2. Otherwise essentially unremarkable.
[2020-06-11 23:52] VITALS: BP 110/68
== END 2020-06-11 23:50 | disposition home or self-care (01) ==
LOC: ER 16:29
DX: R10.31 Right lower quadrant pain (principal); R10.84 Generalized abdominal pain; R31.29 Other microscopic hematuria; R94.8 Abnormal results of function studies of other organs and systems; F17.200 Nicotine dependence, unspecified, uncomplicated
CPT/HCPCS: 99285; 36415; 83690; 84703; 85025; 80053; 81001; 74176; J3490